=== PATIENT | female | born 1980 | race African-American/Black ===

== ENCOUNTER 2017-03-05 11:05 | Outpatient (CLI) | payer OTHER ==
[2017-03-05] MEDS ORDERED: IOHEXOL 50 ML IV ONE (11:14)
== END 2017-03-05 18:59 | disposition home or self-care (01) ==
LOC: SRD 11:05
PROVIDERS: ATTEND Obstetrics & Gynecology
DX: O00.90 Unspecified ectopic pregnancy without intrauterine pregnancy (principal)
CPT/HCPCS: 58340; 74740; C1751; Q9967